=== PATIENT | female | born 1995 ===

== ENCOUNTER 2019-03-01 18:35 | Inpatient (IN) | payer OTHER ==
[2019-03-01] MEDS ORDERED: ONDANSETRON 4 MG/2 ML VIAL IVPUSH PRN (19:27)
[2019-03-01] MEDS ORDERED: DEXAMETHASONE SOD PHOSPHATE 4 MG/1 ML VIAL ONE (19:39)
[2019-03-01] MEDS ORDERED: KETOROLAC TROMETHAMINE 30 MG/1 ML VIAL ONE (19:39)
[2019-03-01 19:43] LABS: BASO % 0.7 % (0-2.0); EOS % 0.9 % (0-4.5); HEMATOCRIT 38.6 % (32.4-45.2); HEMOGLOBIN 13.1 GM/dL (10.7-15.3); LYMPH % 24.3 % (8-40); MCH 32.2 pg (25.7-33.7); MEAN CELL VOLUME 94.9 fl (80-96); MONO % 6.7 % (3.8-10.2); NEUT % 67.4 % (42.8-82.8); PLATELET COUNT 225 K/MM3 (134-434); RBC 4.06 M/mm3 (3.60-5.2); RDW 12.9 % (11.6-15.6); WHITE BLOOD COUNT 13.3 K/mm3 (4.0-10.0)
[2019-03-01] MEDS ORDERED: CLINDAMYCIN PHOSPHATE 600 MG/4 ML VIAL ONE (19:46)
[2019-03-01 19:52] VITALS: BMI 27.4
[2019-03-01 19:57] LABS: INR 0.93 (0.83-1.09)
[2019-03-01 20:00] LABS: ACTIVATED PTT 27.1 SECONDS (25.2-36.5)
[2019-03-01 20:05] LABS: BLOOD UREA NITROGEN 5.9 mg/dL (7-18); CALCIUM 8.6 mg/dL (8.5-10.1); CREATININE 0.6 mg/dL (0.55-1.3); POTASSIUM 3.4 mmol/L (3.5-5.1)
[2019-03-01] MEDS ORDERED: PHENYLEPHRINE HCL 10 MG/1 ML SINGLE DOSE VIAL ONE (20:07)
[2019-03-01] MEDS ORDERED: CITRIC ACID/SODIUM CITRATE 30 ML UNIT-DOSE CUP PO ONE (20:57)
[2019-03-01] MEDS ORDERED: IBUPROFEN 800 MG/8 ML IJ IVPB PRN (20:58)
[2019-03-01] MEDS ORDERED: BENZOCAINE 28 GM HEMORRHOIDAL OINTMENT PR PRN (20:58)
[2019-03-01] MEDS ORDERED: diphenhydrAMINE HCL 25 MG CAPSULE (FP) PO PRN (20:58)
[2019-03-01] MEDS ORDERED: METHYLERGONOVINE MALEATE 0.2 MG/1 ML AMP IM PRN (20:58)
[2019-03-01] MEDS ORDERED: BENZOCAINE 20% 57 GM BOTTLE TP PRN (20:58)
[2019-03-01] MEDS ORDERED: oxyCODONE HCL 5 MG TABLET PO PRN ×2 (20:58)
[2019-03-01] MEDS ORDERED: WITCH HAZEL 50% (TUCKS) 40 PAD/JAR PAD TP PRN (20:58)
[2019-03-01] MEDS ORDERED: OXYTOCIN 20 UNITS in 0.9% NS 20 UNIT/1,000 ML INFUS.BAG IV SCH (21:00)
[2019-03-01] MEDS ORDERED: ELECTROLYTE-148 SOLN 1,000 ML IV SCH (21:00)
--- NOTE | 2019-03-01 21:06 | OP ---
Operative Note - Note: Operative Date: 03/01/19 Pre-Operative Diagnosis: 39 weeks, previous c/s, non reassuring fhr Operation: repeat LST c/s Findings: live baby girl 9 , cord around neck 1 Surgeon: Owen Blood Jackscrew Man: King Powell Anesthesia: Spinal Specimens Removed: placenta Estimated Blood Loss (mls): 500 Drains & Tubes with Location: [facility] Volume Replaced (mls): 0 Operative Report Dictated: Yes
--- NOTE | 2019-03-01 21:23 | HP ---
Past Medical History - Primary Care Physician PCP:: Owen Blood - Admission Chief Complaint: 39 weeks, previous c/s . non reassuring FHR History of Present Illness: 23 yo f 0 2 1, with one previous c/s came to L&D c/o low abdominal cramps and vaginal spotting, had analisa cardia with variable decel with late component , irregular contraction advised repeat c/s, risks discussed History Source: Patient Limitations to Obtaining History: Language Barrier - Past Medical History ...: 4 ...Para: 1 ...Term: 1 ...: 0 ...Spon : 2 ...Induced : 0 ...Multiple Gestation: 0 ...LMP: 06/04/18 ... Weeks Gestation by Dates: 38.4 ...EDC by Dates: 03/11/19 ...EDC by Sono: 03/07/19 - Past Surgical History Past Surgical History: Yes: Hx Myomectomy: No Hx Transabdominal Cerclage: No - Smoking History Smoking history: Never smoked Have you smoked in the past 12 months: No - Alcohol/Substance Use Hx Alcohol Use: No - Social History History of Recent Travel: No Home Medications - Allergies Allergies/Adverse Reactions: Allergies Allergy/AdvReac Type Severity Reaction Status Date / Time Penicillins Allergy Severe Rash Verified 03/01/19 19:21 - Home Medications Home Medications: Ambulatory Orders Pnv No.95/Ferrous Fum/Folic AC [ Formula] 1 each PO DAILY 03/01/19 Review of Systems - Review of Systems Constitutional: reports: No Symptoms Eyes: reports: No Symptoms HENT: reports: No Symptoms Neck: reports: No Symptoms Cardiovascular: reports: No Symptoms Respiratory: reports: No Symptoms Gastrointestinal: reports: No Symptoms Genitourinary: reports: No Symptoms Breasts: reports: No Symptoms Reported Musculoskeletal: reports: No Symptoms Integumentary: reports: No Symptoms Neurological: reports: No Symptoms Endocrine: reports: No Symptoms Hematology/Lymphatic: reports: No Symptoms Psychiatric: reports: No Symptoms Physical Exam - Maternity Vital Signs: Vital Signs Temperature 97.9 F 03/01/19 19:54 Pulse Rate 107 H 03/01/19 19:54 Respiratory Rate 20 03/01/19 19:54 Blood Pressure 117/72 03/01/19 19:54 O2 Sat by Pulse Oximetry (%) Constitutional: Yes: Well Nourished, No Distress, Calm Eyes: Yes: WNL, Conjunctiva Clear, EOM Intact HENT: Yes: WNL, Atraumatic, Normocephalic Neck: Yes: WNL, Supple, Trachea Midline Cardiovascular: Yes: WNL, Regular Rate and Rhythm Breast(s): Yes: WNL - Abdominal Exam/OB Fundal Height: 40 Number of Fetuses: Single Presentation: Vertex Contractions: Yes Regularity: Irregular Monitor Mode: External Heart Rate Location: [facility] Category: II Decelerations: Late - Vaginal Exam/OB Vaginal Bleediing: Bloody Show Speculum Exam: No Dilatation (cm): 1 Effacement (%): 50 Amniotic Membrane Status: Intact Presentation: Vertex/Position Station: -3 - Physical Exam Musculoskeletal: Yes: WNL Extremities: Yes: WNL Edema: Yes Edema: LLE: Trace, RLE: Trace Deep Tendon Reflex Grade: Normal +2 ...Motor Strength: WNL Psychiatric: Yes: WNL - Labs Lab Results: CBC, BMP 03/01/19 19:20 03/01/19 19:20 Hemorrhage Risk Assessment - Risk Factors Medium Risk Factors: Yes: Prior , uterine surgery,or multiple laparotomies Risk Score: 1 Risk Level: Medium Risk Problem List - Problems (1) with 39 completed weeks gestation Code(s): Z3A.39 - 39 WEEKS GESTATION OF (2) Non-reassuring electronic monitoring tracing Code(s): O76 - ABNLT IN HEART RATE AND RHYTHM COMP LABOR AND DELIVERY (3) Previous section complicating Code(s): O34.219 - MATERNAL CARE FOR UNSP TYPE SCAR FROM PREVIOUS DEL Assessment/Plan repeat c/s
[2019-03-01] MEDS ORDERED: OXYTOCIN 20 UNITS in 0.9% NS 20 UNIT/1,000 ML INFUS.BAG IV ONE (21:49)
--- NOTE | 2019-03-01 23:26 | OP ---
DATE OF OPERATION: 03/01/2019 PREOPERATIVE DIAGNOSIS: 39 weeks, previous section, nonreassuring heart rate. POSTOPERATIVE DIAGNOSIS: 39 weeks, previous section, nonreassuring heart rate. PROCEDURE: Repeat low segment transverse section. SURGEON: Owen Blood M.D. AIR DEFENSE SPECIALIST: Ted Goldstein ANESTHESIA: Spinal. ANESTHESIOLOGIST: Kunal Witt M.D. ESTIMATED BLOOD LOSS: 500 mL. FINDINGS: Live baby girl, Apgars 9 and 9. OPERATION: Patient was taken to operating room with adequate spinal anesthesia. Abdomen and perineum were prepped and draped. Pfannenstiel abdominal skin incision was made. Abdominal wall was cut layer by layer until the peritoneum was exposed and incised. Upon entering the abdominal cavity, the lower uterine segment was identified, and uterovesical fold of the peritoneum was established. The bladder was pushed down. A low transverse incision was made. Amniotic sac was entered. Clear fluid. Incision extended laterally with bandage scissors and head delivered. Cord around the neck x1 reduced. Anterior and posterior shoulder delivered without any difficulty. A live baby girl was delivered. Placenta was delivered manually. Apgars was 9 and 9. Uterine cavity was cleared of all remaining tissue. Uterine incision was closed in 2 layers, the 1st layer with 0 Biosyn continuous suture, the 2nd layer with 0 Biosyn imbricating the 1st layer. Bladder flap was closed with 0 Biosyn continuous suture. All the lap, sponge, and instrument counts were correct. Peritoneum was closed with 0 Biosyn continuous suture. Muscles were brought together interrupted suture with 0 Biosyn. Fascia was closed with 0 Biosyn continuous sutures. Subcutaneous fat interrupted sutures 0 Biosyn, and the skin was closed with 3-0 Vicryl subcuticular continuous suture. The patient tolerated the procedure well and left the OR in good condition. OWEN BLOOD M.D. [id number]
[2019-03-02] MEDS ORDERED: CLINDAMYCIN PHOSPHATE 600 MG/4 ML VIAL ONE (00:31)
[2019-03-02] MEDS ORDERED: CEFAZOLIN 1 GM/D5W 50 ML IVPB SCH (02:00)
[2019-03-02] MEDS: CLINDAMYCIN 600MG PREMIX IVPB 600 MG/50 ML BAG IVPB SCH ×3 (02:00→18:09)
[2019-03-02] MEDS ORDERED: DEXTROSE 5%-LACTATED RINGERS 1,000 ML IV SCH (05:00)
--- NOTE | 2019-03-02 08:09 | PN ---
Progress Note (short form) - Note Progress Note: pod 1 s/p repeat c/s, doing well, no c/o CBC, BMP 03/01/19 19:20 03/01/19 19:20 Last Vital Signs Temp Pulse Resp BP Pulse Ox 98.9 F 92 H 18 115/60 100 03/02/19 06:00 03/02/19 06:00 03/02/19 07:00 03/02/19 06:00 03/01/19 22:30 abdomen soft, no distension, no cva incison dry, clean no calf tenderness plan ambulate , advance diet cbc pain management Problem List - Problems (1) with 39 completed weeks gestation Code(s): Z3A.39 - 39 WEEKS GESTATION OF (2) Non-reassuring electronic monitoring tracing Code(s): O76 - ABNLT IN HEART RATE AND RHYTHM COMP LABOR AND DELIVERY (3) Previous section complicating Code(s): O34.219 - MATERNAL CARE FOR UNSP TYPE SCAR FROM PREVIOUS DEL
--- NOTE | 2019-03-02 08:40 | PN ---
Progress Note (short form) - Note Progress Note: Anesthesia postop note 23 y/o F s/p spinal anesthesia/duramorph for section. POD#1, vss, aaox3, no complaints. No anesthesia complications.
[2019-03-02 09:13] LABS: BASO % 0.3 % (0-2.0); HEMATOCRIT 35.6 % (32.4-45.2); HEMOGLOBIN 12.2 GM/dL (10.7-15.3); LYMPH % 10.6 % (8-40); MCH 32.3 pg (25.7-33.7); MCHC 34.2 g/dl (32.0-36.0); MEAN CELL VOLUME 94.4 fl (80-96); MEAN PLT VOLUME 9.3 fl (7.5-11.1); MONO % 6.1 % (3.8-10.2); PLATELET COUNT 203 K/MM3 (134-434); RBC 3.77 M/mm3 (3.60-5.2); WHITE BLOOD COUNT 16.9 K/mm3 (4.0-10.0)
[2019-03-02] MEDS: PRENATAL VITAMINS W/ FOLIC ACID TABLET (FP) PO SCH (10:00)
[2019-03-02] MEDS: ENOXAPARIN NA (PORCINE) 40 MG/0.4 ML DISP.SYRIN SQ SCH (13:03)
[2019-03-02] MEDS ORDERED: BISACODYL 10 MG SUPP.RECT RC PRN (20:59)
[2019-03-03] MEDS: SIMETHICONE 80 MG TAB.CHEW (FP) PO PRN ×2 (08:58→21:59)
[2019-03-03] MEDS: IBUPROFEN 600 MG TABLET (FP) PO PRN ×2 (08:59→22:00)
[2019-03-03] MEDS: ENOXAPARIN NA (PORCINE) 40 MG/0.4 ML DISP.SYRIN SQ SCH (10:26)
[2019-03-03] MEDS: PRENATAL VITAMINS W/ FOLIC ACID TABLET (FP) PO SCH (10:26)
--- NOTE | 2019-03-03 12:44 | DS ---
Physical Exam-MISSION PLANNER Vital Signs: Vital Signs Temperature 97.4 F L 03/03/19 10:05 Pulse Rate 102 H 03/03/19 10:05 Respiratory Rate 18 03/03/19 10:05 Blood Pressure 100/61 03/03/19 10:05 O2 Sat by Pulse Oximetry (%) 100 03/01/19 22:30 Constitutional: Yes: Well Nourished, No Distress, Calm Eyes: Yes: WNL, Conjunctiva Clear HENT: Yes: WNL, Atraumatic, Normocephalic Neck: Yes: WNL, Supple, Trachea Midline Cardiovascular: Yes: WNL, Regular Rate and Rhythm Respiratory: Yes: WNL, Regular, CTA Bilaterally Gastrointestinal: Yes: WNL, Normal Bowel Sounds, Soft ...Rectal Exam: Yes: Deferred Renal/: Yes: WNL External Genitalia: Yes: Normal Internal Exam Deferred: Yes Breast(s): Yes: WNL Musculoskeletal: Yes: WNL Extremities: Yes: WNL Edema: Yes Edema: LLE: Trace, RLE: Trace Integumentary: Yes: WNL Wound/Incision: Yes: Clean/Dry, Well Approximated, Open to air Neurological: Yes: WNL, Alert, Oriented ...Motor Strength: WNL Psychiatric: Yes: WNL, Alert, Oriented Labs: CBC, BMP 03/02/19 07:20 03/01/19 19:20 Delivery - Delivery Section: Repeat, Low Flap Transverse Type of Anesthesia: Spinal Episiotomy/Laceration: None EBL (cc): 500 Delivery, Single - Stages of Labor Date 1st Stage Initiatied: 03/01/19 Time 1st Stage Initiated: 14:00 Date of Delivery: 03/01/19 Time of Delivery: 20:17 Time Placenta Delivered: 20:18 Placenta: Yes: Manual Removal - 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 Present: Yes Name: Edna Iyer Infant Gender: Female Weight: 2.58 kg Position: Right, OP Total Hours ROM (Hrs/Mins): 2mins - 1 Minute Total Score: 9 5 Minutes Total Score: 9 - [place] Feeding Plan Initial Plan: Exclusive throughout hospitalization Benefits of Exclusively reinforced: Yes Discharge Summary Problems reviewed: Yes Reason For Visit: IN LABOR Current Active Problems Non-reassuring electronic monitoring tracing (Acute) with 39 completed weeks gestation (Acute) Previous section complicating (Acute) Procedures: Principal: Repeat LT C/S Hospital Course: Normal postoperative and recovery. Condition: Good - Instructions Diet, Activity, Other Instructions: Physical activity Resume your normal everyday activity as tolerated no heavy lifting or exercise until seen by your surgeon. You may walk unlimited alonzo of and climb stairs. You may resume driving the car when you feel safe and comfortable behind the wheel. No sexual activity as instructed. Wound care If you have a bandage, leave it on, and keep dry for 48-72 hours. After that time discard the outer bandage. If they are tapes on the skin under the out of bandage leave them in place. They will peel off in the next 7 to 10 days. Do Not Peel them off. You may shower the day after surgery. If there are tapes present on the skin, you may shower over them. Diet There are no dietary restrictions. Eat healthy, high-fiber foods. Drink 6 to 8 glasses of liquid each day. This will assist in keeping your bowels are regular. Pain management You may take Tylenol or acetaminophen or Ibuprofen (for example, Motrin, Advil etc.) from my pain prescription medication is ordered should be taken as prescribed for moderate to severe pain. Call MD for any of the following: Severe pain not relieved by medication Fever of 101 or higher Excessive bleeding or drainage on dressing Inability to urinate FOLLOW UP IN THE OFFICE IN 7-14 DAYS. PLEASE CALL . Referrals: Richelle Ambriz MD [Staff Physician] - Disposition: HOME - Home Medications Comprehensive Discharge Medication List: Ambulatory Orders Pnv No.95/Ferrous Fum/Folic AC [ Formula] 1 each PO DAILY 03/01/19 Prescription Drug Monitoring Program (I-STOP) results: I-STOP not reviewed
[2019-03-03] MEDS ORDERED: SENNOSIDES/DOCUSATE COMBO (SENNA PLUS) TABLET (UD) PO PRN (22:00)
[2019-03-04 07:57] LABS: BASO % 0.3 % (0-2.0); EOS % 2.5 % (0-4.5); HEMATOCRIT 36.7 % (32.4-45.2); HEMOGLOBIN 12.6 GM/dL (10.7-15.3); LYMPH % 12.5 % (8-40); MCH 32.5 pg (25.7-33.7); MCHC 34.5 g/dl (32.0-36.0); MEAN CELL VOLUME 94.4 fl (80-96); MEAN PLT VOLUME 8.3 fl (7.5-11.1); MONO % 7.6 % (3.8-10.2); NEUT % 77.1 % (42.8-82.8); PLATELET COUNT 163 K/MM3 (134-434); RBC 3.89 M/mm3 (3.60-5.2); RDW 13.2 % (11.6-15.6); WHITE BLOOD COUNT 12.7 K/mm3 (4.0-10.0)
[2019-03-04] MEDS: IBUPROFEN 600 MG TABLET (FP) PO PRN (10:12)
[2019-03-04] MEDS: PRENATAL VITAMINS W/ FOLIC ACID TABLET (FP) PO SCH (10:13)
[2019-03-04] MEDS: SIMETHICONE 80 MG TAB.CHEW (FP) PO PRN (10:13)
[2019-03-04] MEDS: ENOXAPARIN NA (PORCINE) 40 MG/0.4 ML DISP.SYRIN SQ SCH (10:13)
[2019-03-04 11:42] VITALS: BP 114/59; PULSE 100; TEMP 99.6
--- NOTE | 2019-03-12 16:52 | PATH ---
Surgical Pathology Report Patient Name: JULIO CHILDERS Med. Rec. #: [id number] /Age/Gender: 1995 (Age: 23) / F Account: [id number] Location: [facility] OBS/CAMERA SYSTEMS ENGINEER Taken: 03/01/2019 Received: 03/02/2019 Reported: 03/12/2019 Physicians: Owen Blood M.D. Specimen(s) Received PLACENTA Clinical History , 39.1 weeks Nonreassuring heart rate Final Diagnosis PLACENTA, SECTION: 362 G THIRD TRIMESTER PLACENTA WITH TRIVASCULAR UMBILICAL CORD AND UNREMARKABLE PLACENTAL MEMBRANES. Electronically Signed Gaby Guzmán M.D. Gross Description The specimen is received fresh labeled placenta and is a 362 gram, 19.5 x 13.0 x 2.0 cm. placenta with attached membranes and umbilical cord. The attached membranes are coreas, translucent with focal opacities and insert marginally. The umbilical cord measures 12 cm. in length and averages 1 cm. in diameter. The cord inserts eccentrically, 3 cm. to the nearest margin. No true knots or strictures are identified. Cut surface of the umbilical cord reveals 3 vessels. The surface is youngblood-blue with minimal fibrin deposition and appropriate caliber vessels. The maternal surface is red-brown with focal defects. Sectioning reveals red-brown, spongy parenchyma. No lesions are identified. Java [employer] Developer sections are submitted in three cassettes as follows: 1- membrane rolls and umbilical cord; 2-3- full thickness sections of placenta. 03/09/2019 [facility]03/09/2019
== END 2019-03-04 13:10 | disposition home or self-care (01) | DRG 540 ==
LOC: JDEL 18:35 → JLDR 19:20 → J3W 03-02 13:33
PROVIDERS: ADMIT Obstetrics & Gynecology; ATTEND Obstetrics & Gynecology
PROC: 10D00Z1 Extraction of Products of Conception, Low, Open Approach (ICD-10-PCS; principal; 2019-03-01)
DX: O34.211 Maternal care for low transverse scar from previous cesarean delivery (principal); O76 Abnormality in fetal heart rate and rhythm complicating labor and delivery; O69.81X0 Labor and delivery complicated by cord around neck, without compression, not applicable or unspecified; Z3A.39 39 weeks gestation of pregnancy; Z37.0 Single live birth
CPT/HCPCS: 36415; 36600; 80048; 82803; 85025; 85610; 85730; 86593; 86850; 86900; 86901; 88307-TC